=== PATIENT | female | born 1945 | race Caucasian/White ===

== ENCOUNTER → 2017-02-17 | Outpatient (CLI) | payer MEDICARE, OTHER ==
[~2017-02-17] MED LIST: AMBIEN CR PO; AMBIEN CR12.5 MG/BL PO; AMBIEN12.5 MG PO; AMITIZA8 MCG PO; AMITRIPTYLINE H25 MG PO; ASPIRIN81 M2 PO; CALCIUM 600 + D1 TA1 PO; CLOTRIMAZOLE15 GM TP; CYMBALTA30 MG PO; FERRO-TIME325 MG PO; HYDROCODON-ACE1 EAC7 PO; LIPITOR20 MG PO; LIPITOR40 MG PO; LOPRESSOR PO; LOVAZA1 G PO; LOVAZA1 GM PO; MULTI-VITAMIN1 EAC1 PO; NEXIUM PO; PERCOCET 10/3251 TAB PO; PHENERGAN25 MG PO; TRAMADOL HCL100 M1 PO; TRANXENE T-TAB7.5 MG PO; TRICOR145 MG PO; VITAMIN C500 M5 PO; VITAMINE B-1100 MG PO; VOLTAREN100 GM TP
--- NOTE | ~2017-02-17 | CR150 ---
[facility]. [facility] A Service of [facility] RADIOLOGY TEXT RESULTS PATIENT: GAMALIEL PATEL I LOCATION: [facility] : 49 UNIT #: [id number] AGE: [address]: Merna Gallegos MD SEX: F ORDER DR: [id number] [place] [id number] O MR#: [id number] Acc #: [id number] NAME: GAMALIEL PATEL I. : 1945 SEX: F STUDY DATE/TIME: 02/17/2017 9:54 UNIT: [facility] ROOM: STUDY DESCRIPTION: CR Hip Min 2 Views Lt Attending Physician: Merna Gallegos M.D. Referring Physician: Merna Gallegos M.D. Ordering Physician: Merna Gallegos M.D. Primary Care Physician: Merna Gallegos M.D. MEDICAL IMAGING REPORT This report is preliminary unless electronic signature is present. EXAM Left pelvis and hip series HISTORY Pain for 1 year. FINDINGS AP radiograph of the pelvis is presented with frog-leg view of the left hip. No fracture or traumatic malalignment. Degenerative changes lower lumbar spine. Partial sacralization right aspect L5. Bony ring of pelvis intact. Mild to mild/moderate degenerative changes in the bilateral hips, probably greater on the left than right. Periarticular soft tissues unremarkable. Atherosclerotic arterial calcifications. Calcification in the central lower pelvis probably calcified uterine fibroid. This could be a radiodensity within the fecal stream. Surgical clips in the right hemiabdomen and right hemipelvis. Visualized bowel gas pattern normal. Dictated by... Pierre Baires M.D. THIS IS AN ELECTRONICALLY VERIFIED REPORT Pierre Baires M.D. at 02/18/2017 10:27 PM EMERY/connie TD: 02/18/2017 02:00 JOB #: [id number] MEDICAL IMAGING REPORT Page 1 of 1
== END | disposition home or self-care (01) ==
LOC: SRAD 09:44
DX: M79.605 Pain in left leg (principal)
CPT/HCPCS: 73502

== ENCOUNTER → 2017-04-22 | Day surgery (SDC) | payer MEDICARE, OTHER ==
--- NOTE | ~2017-04-22 | OR ---
Unit #: [id number] #: [id number] Patient: GAMALIEL PATEL I [id number] [address] [address] [id number] O MR#: [id number] NAME: GAMALIEL PATEL I. ROOM: Date of Procedure: 04/22/2017 Admission Date: 04/22/2017 Surgeon: Chung Rodrigez M.D. : 1945 Attending Physician: Yann Rodrigez Primary Care Physician: Merna Gallegos M.D. SURGERY CENTER OPERATIVE NOTE PROCEDURE PERFORMED Lumbar epidural steroid injection under x-ray guided needle placement with provider administered conscious sedation. PREOPERATIVE DIAGNOSES 1. Acute lumbar radiculitis. 2. Spinal stenosis, lumbosacral spine. 3. Herniated disk, L4-L5. 4. Degenerative joint disease, lumbosacral spine. 5. Degenerative disk disease, lumbosacral spine. 6. Facet arthrosis, lumbosacral spine. 7. Facet arthralgia, lumbosacral spine. INDICATIONS FOR PROCEDURE The patient presents today having previously had an acute radiculitis, successfully treated with epidural steroid injections with 100% relief. This occurred approximately 18 months ago. She presents today with a multiple weeks long history of increasing crescendo pattern lumbar radiculopathy as well as some facet arthralgia symptoms left greater than right. This is failed to respond to conservative measures, which include medication. After discussing risks and benefits of proceeding today with lumbar approach epidural steroid injection and return dates of 05/13/2017 for potential repeat epidural steroid injection, the patient agreed this would be the appropriate course of action. We also discussed obtaining a CT scan and potential cervical epidural steroid injections as well as referral to [facility] for potential radiofrequency ablation of her L4-L5 and potentially L5-S1 facet arthrosis. DESCRIPTION OF PROCEDURE Following these discussions, the patient was taken to the operating room, where she was prepped and draped in a sterile manner. Standard monitors were applied. She was sedated with 2 mg of IV Versed and lumbar epidural space accessed at the L4-L5 level using loss of resistance technique and x-ray guidance. Needle placement was confirmed with injection of 2 mL of Omnipaque. Approximately all dye flow at this level was in the superior direction. Following successful needle placement confirmation which required an x-ray time of 5 seconds, the patient received an injectate containing 2 mL normal saline, 2 mL of 0.25% bupivacaine, and 80 mg of methylprednisolone. She tolerated this procedure well. She was discharged home with followup instructions, which are described above. Dictated by... Unit #: [id number] #: [id number] Patient: GAMALIEL PATEL I Gina Lange/caroline TD: 04/22/2017 14:08 JOB #: [id number] SURGERY CENTER OPERATIVE NOTE Page 1 of 1 X Yann Rodrigez MD X PROCEDURE OPERATIVE NOTE
== END | disposition home or self-care (01) ==
LOC: CCSC 11:44
DX: M51.17 Intervertebral disc disorders with radiculopathy, lumbosacral region (principal); M51.16 Intervertebral disc disorders with radiculopathy, lumbar region; M47.27 Other spondylosis with radiculopathy, lumbosacral region; M48.07 Spinal stenosis, lumbosacral region; Z88.8 Allergy status to other drugs, medicaments and biological substances; Z79.82 Long term (current) use of aspirin; Z79.899 Other long term (current) drug therapy; Z79.891 Long term (current) use of opiate analgesic; Z98.49 Cataract extraction status, unspecified eye; Z98.890 Other specified postprocedural states
CPT/HCPCS: J1040; J2250

== ENCOUNTER → 2017-05-20 | Day surgery (SDC) | payer MEDICARE, OTHER ==
--- NOTE | ~2017-05-20 | OR ---
Unit #: [id number] #: [id number] Patient: GAMALIEL PATEL I [id number] [address] [place], [place] [address] [id number] O MR#: [id number] NAME: GAMALIEL PATEL I. ROOM: Date of Procedure: 05/20/2017 Admission Date: 05/20/2017 Surgeon: Chung Rodrigez M.D. : 1945 Attending Physician: Chung Rodrigez M.D. Primary Care Physician: Merna Gallegos M.D. SURGERY CENTER OPERATIVE NOTE PROCEDURE PERFORMED Lumbar epidural steroid injection under x-ray guided needle placement with provider administered conscious sedation. PREOPERATIVE DIAGNOSES 1. Acute lumbar radiculitis. 2. Spinal stenosis, lumbosacral spine. 3. Herniated disk, L4-L5. 4. Degenerative disk disease, lumbosacral spine. 5. Degenerative joint disease, lumbosacral spine. INDICATIONS FOR PROCEDURE The patient presents today with longstanding history of chronic lumbar radicular pain secondary to her underlying degenerative processes. She is generally fairly well managed medically with ongoing continuous medical management and self-directed physical activities. She usually does well; however, she does on occasion experienced exacerbations, which to date have broken through her ongoing continuous conservative measurements and have only responded to epidural steroid injections. Her usual amount of relief is 80% or greater for 8 to 10 weeks. She presents today with approximately 1 month history of crescendo pattern radicular pain, which is similar in nature to her previous pains and consistent with her x-ray studies. This pain like previous has broken through her ongoing conservative measurements. After discussing risks and benefits of proceeding today with a lumbar approach epidural steroid injection, the patient agreed this would be the appropriate course of action. DESCRIPTION OF PROCEDURE She was then taken to the operating room, where she was prepped and draped in a sterile manner. Standard monitors were applied. She was sedated with 2 mg of IV Versed and lumbar epidural space accessed at the L4-L5 level using loss of resistance technique and x-ray guidance. Needle placement was confirmed with injection of 2 mL of Omnipaque. Almost 100% of dye flow was in the superior direction. The patient then received an injectate containing 4 mL normal saline and 40 mg of methylprednisolone. The second needle was introduced at the L5-S1 level again using loss of resistance technique and x-ray guidance. Needle placement at this level was confirmed with injection of 2 mL of Omnipaque. There was good superior and inferior flow at the L5-S1 placed needle. Following successful needle placement, the patient received the remainder of injectate which containing 4 mL normal saline and 40 mg of methylprednisolone. Her total injectate volume today was 8 mL normal saline and 80 mg of methylprednisolone. She tolerated this procedure Unit #: [id number] #: [id number] Patient: GAMALIEL PATEL I well. She was discharged home with followup instructions which include offer to return this clinic as early as 08/26/2017 if we could be of further service to her. Total x-ray time for today's procedure was 12 seconds. Dictated by... Gina Lange/caroline TD: 05/20/2017 13:42 JOB #: [id number] CC: Merna Gallegos M.D. SURGERY CENTER OPERATIVE NOTE Page 1 of 1 X Yann Rodrigez MD X PROCEDURE OPERATIVE NOTE
== END | disposition home or self-care (01) ==
LOC: CCSC 05-13 14:15
DX: G89.29 Other chronic pain (principal); M51.17 Intervertebral disc disorders with radiculopathy, lumbosacral region; M51.16 Intervertebral disc disorders with radiculopathy, lumbar region; M47.27 Other spondylosis with radiculopathy, lumbosacral region; M48.07 Spinal stenosis, lumbosacral region; Z88.8 Allergy status to other drugs, medicaments and biological substances; Z79.82 Long term (current) use of aspirin; Z79.899 Other long term (current) drug therapy; Z98.49 Cataract extraction status, unspecified eye; Z98.890 Other specified postprocedural states
CPT/HCPCS: J1040; J2250